=== PATIENT | female | born 2000 | race Caucasian/White ===

== ENCOUNTER 2019-11-19 08:55 | Outpatient (CLI) | payer OTHER ==
[~2019-11-19 08:55] MED LIST: ONDA4TAB6 PO
== END 2019-11-19 11:30 | disposition home or self-care (01) ==
LOC: WOUND CARE 08:55 → EDSTATUS 09:20 → WOUND CARE 11:30
PROVIDERS: ATTEND Nurse Practitioner
DX: M25.571 Pain in right ankle and joints of right foot (principal); M25.572 Pain in left ankle and joints of left foot
CPT/HCPCS: G0463

== ENCOUNTER 2019-12-10 05:45 | Day surgery (SDC) | payer BC ==
[2019-11-26 10:25] LABS: EOSINOPHILS # (AUTO) 0.2 X10'3 (0-0.9); LYMPHOCYTES # (AUTO) 1.7 X10'3 (1.1-4.8); RED CELL DISTRIBUTION WIDTH 13.4 % (11.5-14.5)
[2019-11-26 10:27] LABS: BASOPHILS % (AUTO) 0.8 % (0-1); EOSINOPHILS % (AUTO) 4.5 % (0-6); LYMPHOCYTES % (AUTO) 46.4 % (21-51); MEAN CORPUSCULAR HEMOGLOBIN 31.1 PG (27.0-31.0); MEAN CORPUSCULAR HGB CONC 33.6 g/dL (33.0-36.5); MEAN CORPUSCULAR VOLUME 92.6 FL (78-98); MEAN PLATELET VOLUME 9.9 FL (7.4-10.4); MONOCYTES # (AUTO) 0.4 X10'3 (0-0.9); MONOCYTES % (AUTO) 9.6 % (2-12); NEUTROPHILS # (AUTO) 1.5 X10'3 (1.8-7.7); NEUTROPHILS % (AUTO) 38.7 % (42-75); PRE OP HEMOGLOBIN 13.8 g/dL (12.0-16.0); PRE OP PLATELET COUNT 210 X10'3 (140-440); RED BLOOD COUNT 4.42 X10'6 (4.20-5.60)
[2019-11-26 10:31] LABS: CLARITY,URINE CLEAR (Clear); COLOR,URINE YELLOW (Yellow); GLUCOSE, URINE NEGATIVE (Neg); KETONES,URINE NEGATIVE (Neg); LEUKOCYTE ESTERASE ,URINE NEGATIVE (Neg); NITRITES, URINE NEGATIVE (Neg); OCCULT BLOOD,URINE NEGATIVE (Neg); PROTEIN,URINE NEGATIVE (Neg); UROBILINOGEN,URINE 0.2 E.U/dL (0.2-1.0)
[2019-11-26 10:39] LABS: ALBUMIN 4.1 G/DL (3.4-5.0); ALBUMIN/GLOBULIN RATIO 1.2 (1.1-1.5); ALKALINE PHOSPHATASE 37 IU/L (20-180); BLOOD UREA NITROGEN 6 MG/DL (7-18); BUN/CREATININE RATIO 7.8 (6.6-38.0); CALCIUM 8.8 MG/DL (8.5-10.1); CHLORIDE 105 MMOL/L (99-107); CREATININE 0.77 MG/DL (0.40-0.90); PRE OP ALT 30 U/L (30-65); PRE OP ANION GAP 9 (8-16); PRE OP AST 24 U/L (10-37); PRE OP BILIRUB, TOTAL 0.8 MG/DL (0.0-1.0); PRE OP GLUCOSE 78 MG/DL (70-104); PRE OP POTASSIUM 3.9 MMOL/L (3.4-5.1); PRE OP SODIUM 139 MMOL/L (135-145); TOTAL CARBON DIOXIDE 25.2 MMOL/L (24-32); TOTAL PROTEIN 7.4 G/DL (6.4-8.2); eGFR > 90 ML/MIN
[2019-11-26 10:48] LABS: UA COLLECTION TYPE NON-SPECIFIED
[2019-11-26 11:12] LABS: HCG SERUM QL NEGATIVE
[2019-12-10] VITALS (8 sets, daily range): BP systolic 100–120; BP diastolic 52–63
[~2019-12-10] VITALS: Ht 165.1 cm; Wt 56.7 kg
[~2019-12-10 05:45] MED LIST changes: +BC PILLS PO; -ONDA4TAB6 PO; +ceFAZolin 2gm in dextrose, iso 50 ML IV ONE; +famotidine 20mg tablet PO ONE; +ringers solution, lacted 1,000 ML IV SCH
[2019-12-10] MEDS ORDERED: LIDOcaine 1% (10mg/ml) 2ml vial ONE ×2 (06:03)
[2019-12-10] MEDS ORDERED: BUPIVAcaine/PF 2.5 mg/ml (0.25%) 30ml vial ONE (06:43)
[2019-12-10] MEDS ORDERED: bacitracin 15gm ointment TP ONE (06:43)
[2019-12-10] MEDS ORDERED: sevoflurane 250ml liquid IH ONE (07:28)
[2019-12-10] MEDS ORDERED: cloNIDine hcl/PF 100mcg/ml inj ONE (07:31)
[2019-12-10] MEDS ORDERED: BUPIVAcaine 0.5% inj/PF 30 ML ONE (07:32)
[2019-12-10] MEDS ORDERED: fentaNYL/PF 50MCG/1 ML 2ML syringe ONE (07:33)
[2019-12-10] MEDS ORDERED: midazolam 2 mg/2 ml injection ONE (07:34)
[2019-12-10] MEDS ORDERED: LIDOcaine 2% (20mg/ml) 5ml vial ONE (08:06)
[2019-12-10] MEDS ORDERED: 0.9 % SODIUM CHLORIDE 10 ML VIAL ONE ×2 (08:06)
[2019-12-10] MEDS ORDERED: dexamethasone sod phosphate 4mg/ml inj. ONE (08:06)
[2019-12-10] MEDS ORDERED: propofol inj 20 ML IV ONE (08:06)
[2019-12-10] MEDS ORDERED: ondansetron/PF 4mg/2ml inj ONE (08:06)
[2019-12-10] MEDS ORDERED: ringers solution, lacted 1,000 ML IV SCH (08:16)
[2019-12-10] MEDS ORDERED: ondansetron/PF 4mg/2ml inj IV PRN (08:20)
[2019-12-10] MEDS ORDERED: proCHLORperazine 10 MG/2 ml inj IV PRN (08:20)
[2019-12-10] MEDS ORDERED: meperidine/PF 25mg/ml syringe IV PRN ×3 (08:20)
[2019-12-10] MEDS ORDERED: morphine 4 MG/ML inj SYRINge IV PRN (08:20)
[2019-12-10] MEDS ORDERED: morphine 2 MG/ML inj. syringe IV PRN (08:20)
[2019-12-10] MEDS ORDERED: acetaminophen 1,000mg/100ml IV 100 ML IV PRN (08:20)
[2019-12-10] MEDS ORDERED: morphine 10mg/ml inj. ONE (09:11)
--- NOTE | 2019-12-10 09:56 | NUR ---
Received from OR via , accompanied by Anesthesiologist DR WINTER and report given by Anesthesiolgist. RESPONDS TO VOICE. VITALS STABLE. DRESSING/SPLINT DI. BILL PAIN. TOES COOL AND PINK.
--- NOTE | 2019-12-10 11:16 | NUR ---
AWAKE AND ORIENTED. VITALS STABLE. DRESSING/SPLINT DI. BILL PAIN. CRUTCHES AND CRUTCH WALKING INSTRUCTIONS PROVIDED. HOME WITH HER MOM AT THIS TIME.
[2019-12-10] MEDS ORDERED: ondansetron 4mg rapidly disintigrating tab PO ONE (11:50)
== END 2019-12-10 11:16 | disposition home or self-care (01) ==
LOC: PAS 05:45
PROVIDERS: ATTEND Podiatrist Foot & Ankle Surgery
DX: M21.41 Flat foot [pes planus] (acquired), right foot (principal); M21.6X1 Other acquired deformities of right foot; G89.18 Other acute postprocedural pain; Z79.899 Other long term (current) drug therapy; Z11.59 Encounter for screening for other viral diseases; Z98.890 Other specified postprocedural states
CPT/HCPCS: 27687; 28238; 28300; 28304; 36415; 64445; 64447; 73630; 76000; 76942; 80053; 81003; 82948; 84703; 85025; A6223; C1713; J0735; J1100; J2001; J2250; J2270; J2405; J2704; J3010; J3490; J7120; U0003; A4215; A4618; A6449; A7000

== ENCOUNTER 2019-12-24 10:05 | Outpatient (CLI) | payer BC ==
[~2019-12-24 10:05] MED LIST changes: -ceFAZolin 2gm in dextrose, iso 50 ML IV ONE; -famotidine 20mg tablet PO ONE; -ringers solution, lacted 1,000 ML IV SCH
== END 2019-12-27 14:10 | disposition home or self-care (01) ==
LOC: WOUND CARE 10:05
PROVIDERS: ATTEND Nurse Practitioner
DX: T81.89XD Other complications of procedures, not elsewhere classified, subsequent encounter (principal); M25.571 Pain in right ankle and joints of right foot; M25.572 Pain in left ankle and joints of left foot; Z79.899 Other long term (current) drug therapy; Y83.8 Other surgical procedures as the cause of abnormal reaction of the patient, or of later complication, without mention of misadventure at the time of the procedure
CPT/HCPCS: 73630; G0463

== ENCOUNTER 2020-01-14 09:40 | Outpatient (CLI) | payer BC | END 2020-01-14 10:05 | disposition home or self-care (01) | LOC: WOUND CARE 09:40 → EDSTATUS 10:00 → WOUND CARE 10:05 | PROVIDERS: ATTEND Nurse Practitioner | DX: T81.89XD Other complications of procedures, not elsewhere classified, subsequent encounter (principal); M25.571 Pain in right ankle and joints of right foot; M25.572 Pain in left ankle and joints of left foot; M21.6X1 Other acquired deformities of right foot; Z79.899 Other long term (current) drug therapy; Z98.890 Other specified postprocedural states; Y83.8 Other surgical procedures as the cause of abnormal reaction of the patient, or of later complication, without mention of misadventure at the time of the procedure | CPT/HCPCS: G0463 ==

== ENCOUNTER 2020-01-28 09:50 | Outpatient (CLI) | payer BC | END 2020-01-28 10:55 | disposition home or self-care (01) | LOC: WOUND CARE 09:50 → EDSTATUS 10:00 → WOUND CARE 10:55 | PROVIDERS: ATTEND Nurse Practitioner | DX: T81.89XD Other complications of procedures, not elsewhere classified, subsequent encounter (principal); M25.571 Pain in right ankle and joints of right foot; M25.572 Pain in left ankle and joints of left foot; Z79.899 Other long term (current) drug therapy; Y83.8 Other surgical procedures as the cause of abnormal reaction of the patient, or of later complication, without mention of misadventure at the time of the procedure | CPT/HCPCS: 73590; 73630; G0463 ==

== ENCOUNTER 2020-03-17 09:50 | Day surgery (SDC) | payer BC ==
[2020-03-17] VITALS (12 sets, daily range): BP systolic 101–135; BP diastolic 59–97
[~2020-03-17] VITALS: Ht 165.1 cm; Wt 57.5 kg
[~2020-03-17 09:50] MED LIST changes: +ceFAZolin 2gm in dextrose, iso 50 ML IV ONE; +famotidine 20mg tablet PO ONE; +ringers solution, lacted 1,000 ML IV SCH
[2020-03-17 11:01] LABS: URINE HCG NEGATIVE (NEG)
[2020-03-17] MEDS ORDERED: scopolamine 1.5mg patch.TD72 TD ONE (13:23)
[2020-03-17] MEDS ORDERED: acetaminophen 1,000mg/100ml IV 100 ML IV PRN (13:25)
[2020-03-17] MEDS ORDERED: meperidine/PF 25mg/ml syringe IV PRN ×3 (13:25)
[2020-03-17] MEDS ORDERED: proCHLORperazine 10 MG/2 ml inj IV PRN (13:25)
[2020-03-17] MEDS ORDERED: ondansetron/PF 4mg/2ml inj IV PRN (13:25)
[2020-03-17] MEDS ORDERED: HYDROmorphone/PF 0.2 MG/ML SYRINGE IV PRN ×2 (13:25)
[2020-03-17] MEDS ORDERED: ringers solution, lacted 1,000 ML IV SCH (13:25)
[2020-03-17] MEDS ORDERED: ROPIVAcaine 0.2% (10 MG/5 ML) BOLUS INJECTION POPLITEAL PRN (13:30)
[2020-03-17] MEDS ORDERED: ROPIVAcaine 0.2%/PF PUMP/bolus 550 ML POPLITEAL SCH (13:30)
[2020-03-17] MEDS ORDERED: cloNIDine hcl/PF 100mcg/ml inj ONE (14:43)
[2020-03-17] MEDS ORDERED: BUPIVAcaine/PF 2.5 mg/ml (0.25%) 30ml vial ONE (14:43)
[2020-03-17] MEDS ORDERED: BUPIVAcaine 0.5% inj/PF 30 ML ONE (14:45)
[2020-03-17] MEDS ORDERED: fentaNYL/PF 50MCG/1 ML 2ML syringe ONE ×2 (14:48→15:39)
[2020-03-17] MEDS ORDERED: midazolam 2 mg/2 ml injection ONE (14:48)
[2020-03-17] MEDS ORDERED: sevoflurane 250ml liquid IH ONE (15:02)
[2020-03-17] MEDS ORDERED: bacitracin 15gm ointment TP ONE (17:07)
[2020-03-17] MEDS ORDERED: rocuronium 10mg/ml inj IV ONE (17:25)
[2020-03-17] MEDS ORDERED: propofol inj 20 ML IV ONE (17:25)
[2020-03-17] MEDS ORDERED: glycopyrrolate 0.2mg/ml inj ONE (17:25)
[2020-03-17] MEDS ORDERED: dexamethasone sod phosphate 4mg/ml inj. ONE (17:25)
[2020-03-17] MEDS ORDERED: neostigmine methylsulfate 1 MG/ML 10ml vial ONE (17:25)
[2020-03-17] MEDS ORDERED: acetaminophen 1,000mg/100ml IV 100 ML IV ONE (17:25)
--- NOTE | 2020-03-17 17:27 | NUR ---
RECEIVED FROM OR VIA [facility] ACCOMPANIED BY ANESTHESIOLOGIST DR GRADY, REPORT GIVEN.PT DROWSY BUT AROUSES WITH COMPLAINT OF PAINAT LEVEL 7. 20 GAUGE PIV R HAND PATENT AND RUNNING LR AT 100 ML/HR. L LE DRESSING CDI TOPPED WITH SPLINT VALARIE WRAP AND BOOT. BRISK CAP REFILL, SKIN PINK AND WARM, SAHA, VSS. LLE ELEVATED AND ICE APPLIED. RESTING COMFORTABLY
--- NOTE | 2020-03-17 18:57 | NUR ---
PT AWAKE AND ALERT WITH COMPLAINT OF PAIN AT LEVEL 4. 20 GAUGE PIV R HAND DC/D CATH TIP INTACT. L LE DRESSING CDI TOPPED WITH SPLINT VALARIE WRAP AND BOOT. BRISK CAP REFILL, SKIN PINK AND WARM, SAHA, VSS. TOLERATING FLUIDS, ABLE TO DRESS SELF AND TRANSFER SELF TO WHEELCHAIR WITH NO ASSIST. DISCHARGE INSTRUCTIONS GIVEN AND PT VERBALIZED UNDERSTANDING. TRANSPORTED VIA WHEELCHAIR TO MOTHER IN PRIVATE VEHICLE TO HOME.
== END 2020-03-17 18:57 | disposition home or self-care (01) ==
LOC: PAS 09:50
PROVIDERS: ATTEND Podiatrist Foot & Ankle Surgery
DX: M21.42 Flat foot [pes planus] (acquired), left foot (principal); M21.6X2 Other acquired deformities of left foot; M25.572 Pain in left ankle and joints of left foot; Z98.890 Other specified postprocedural states; Z79.899 Other long term (current) drug therapy; G89.18 Other acute postprocedural pain
CPT/HCPCS: 27687; 28238; 28300; 28304; 64445; 73620; 76000; 81025; A6223; C1713; C9359; J0131; J0735; J1100; J2175; J2250; J2704; J2710; J2795; J3010; J3490; L4360; A4215; A4618; A6449; A7000; J7120

== ENCOUNTER 2020-03-31 11:18 | Outpatient (CLI) | payer BC ==
[~2020-03-31 11:18] MED LIST changes: -ceFAZolin 2gm in dextrose, iso 50 ML IV ONE; -famotidine 20mg tablet PO ONE; -ringers solution, lacted 1,000 ML IV SCH
== END 2020-03-31 23:59 | disposition home or self-care (01) ==
LOC: WOUND CARE 11:18
PROVIDERS: ATTEND Nurse Practitioner
DX: T81.89XA Other complications of procedures, not elsewhere classified, initial encounter (principal); M25.571 Pain in right ankle and joints of right foot; M25.572 Pain in left ankle and joints of left foot; M21.42 Flat foot [pes planus] (acquired), left foot; Z79.899 Other long term (current) drug therapy; Z98.890 Other specified postprocedural states; Y83.8 Other surgical procedures as the cause of abnormal reaction of the patient, or of later complication, without mention of misadventure at the time of the procedure; Y92.238 Other place in hospital as the place of occurrence of the external cause
CPT/HCPCS: 73590; 73630; G0463

== ENCOUNTER 2020-04-07 10:21 | Outpatient (CLI) | payer BC | END 2020-04-07 23:59 | disposition home or self-care (01) | LOC: WOUND CARE 10:21 | PROVIDERS: ATTEND Nurse Practitioner | DX: T81.89XD Other complications of procedures, not elsewhere classified, subsequent encounter (principal); M25.571 Pain in right ankle and joints of right foot; M25.572 Pain in left ankle and joints of left foot; M21.42 Flat foot [pes planus] (acquired), left foot; Z79.899 Other long term (current) drug therapy; Z98.890 Other specified postprocedural states; Y83.8 Other surgical procedures as the cause of abnormal reaction of the patient, or of later complication, without mention of misadventure at the time of the procedure | CPT/HCPCS: G0463 ==

== ENCOUNTER 2020-04-14 10:20 | Outpatient (CLI) | payer BC | END 2020-04-14 23:59 | disposition home or self-care (01) | LOC: EEVIPCON 10:20 → WOUND CARE 10:20 | PROVIDERS: ATTEND Nurse Practitioner | DX: T81.89XD Other complications of procedures, not elsewhere classified, subsequent encounter (principal); M25.571 Pain in right ankle and joints of right foot; M25.572 Pain in left ankle and joints of left foot; M21.42 Flat foot [pes planus] (acquired), left foot; Z79.899 Other long term (current) drug therapy; Z98.890 Other specified postprocedural states; Y83.8 Other surgical procedures as the cause of abnormal reaction of the patient, or of later complication, without mention of misadventure at the time of the procedure | CPT/HCPCS: 73630; G0463 ==

== ENCOUNTER 2020-05-05 10:38 | Outpatient (CLI) | payer BC | END 2020-05-05 23:59 | disposition home or self-care (01) | LOC: WOUND CARE 10:38 | PROVIDERS: ATTEND Nurse Practitioner | DX: T81.89XD Other complications of procedures, not elsewhere classified, subsequent encounter (principal); M25.571 Pain in right ankle and joints of right foot; M25.572 Pain in left ankle and joints of left foot; M21.42 Flat foot [pes planus] (acquired), left foot; Z79.899 Other long term (current) drug therapy; Z98.890 Other specified postprocedural states; Y83.8 Other surgical procedures as the cause of abnormal reaction of the patient, or of later complication, without mention of misadventure at the time of the procedure | CPT/HCPCS: 73630; G0463 ==